=== PATIENT | female | born 1965 | race Caucasian/White ===

== ENCOUNTER → 2017-01-15 | Outpatient (CLI) | payer OTHER | LOC: LAB 07:53 | DX: R53.83 Other fatigue (principal); M62.81 Muscle weakness (generalized); Z13.6 Encounter for screening for cardiovascular disorders ==

== ENCOUNTER 2017-04-06 09:00 | Outpatient (RCR) | payer OTHER | END 2017-04-27 14:19 | disposition home or self-care (01) | LOC: PT 09:00 | DX: M62.81 Muscle weakness (generalized) (principal); R53.83 Other fatigue ==

== ENCOUNTER → 2017-04-13 | Outpatient (CLI) | payer OTHER | LOC: MAMMO 04-12 13:22 | DX: Z12.31 Encounter for screening mammogram for malignant neoplasm of breast (principal) | CPT/HCPCS: G0202 ==

== ENCOUNTER → 2017-04-28 | Outpatient (CLI) | payer OTHER | LOC: MAMMO 13:35 | DX: R92.8 Other abnormal and inconclusive findings on diagnostic imaging of breast (principal) ==

== ENCOUNTER → 2017-05-16 | Day surgery (SDC) | payer OTHER | LOC: MSO 07:50 | DX: Z12.11 Encounter for screening for malignant neoplasm of colon (principal); D12.5 Benign neoplasm of sigmoid colon; I10 Essential (primary) hypertension | CPT/HCPCS: 00810; J2405; J3010; J7120 ==

== ENCOUNTER → 2018-10-05 | Outpatient (CLI) | payer OTHER ==
[2018-10-05 13:11] LABS: HEMATOCRIT 43.5 % (37.0-47.0); HEMOGLOBIN 14.2 g/dL (12.5-16.0); RED BLOOD COUNT 4.74 M/mm3 (4.10-5.30); RED CELL DISTRIBUTION WIDTH 13.7 % (11.5-14.5); WHITE BLOOD COUNT 6.9 K/mm3 (4.8-10.8)
== END ==
LOC: LAB 12:37
PROVIDERS: Family Medicine
DX: K21.9 Gastro-esophageal reflux disease without esophagitis (principal); N91.1 Secondary amenorrhea

== ENCOUNTER → 2020-01-23 | Outpatient (CLI) | payer OTHER ==
[2020-01-23 17:41] LABS: ALBUMIN 4.5 g/dL (3.5-5.0); POTASSIUM 4.3 mmol/L (3.5-5.1)
[2020-01-23 17:42] LABS: CALCIUM 9.7 mg/dL (8.3-10.5)
[2020-01-23 17:43] LABS: TOTAL PROTEIN 7.2 g/dL (6.4-8.3)
[2020-01-23 17:45] LABS: TOTAL BILIRUBIN 0.7 mg/dL (0.2-1.2)
== END ==
LOC: LAB 17:00
PROVIDERS: Family Medicine
DX: I10 Essential (primary) hypertension (principal); K21.9 Gastro-esophageal reflux disease without esophagitis

== ENCOUNTER → 2020-10-29 | Outpatient (CLI) | payer BC ==
[2020-10-29 12:17] LABS: POTASSIUM 4.1 mmol/L (3.5-5.1)
[2020-10-29 12:18] LABS: ALBUMIN 4.3 g/dL (3.5-5.0)
[2020-10-29 12:19] LABS: CALCIUM 9.5 mg/dL (8.3-10.5)
[2020-10-29 12:20] LABS: TOTAL PROTEIN 7.4 g/dL (6.4-8.3)
[2020-10-29 12:22] LABS: TOTAL BILIRUBIN 0.6 mg/dL (0.2-1.2)
== END ==
LOC: LAB 11:56
PROVIDERS: Family Medicine
DX: I10 Essential (primary) hypertension (principal)

== ENCOUNTER → 2022-01-27 | Outpatient (CLI) | payer BC ==
[2022-01-27 16:39] LABS: URINE APPEARANCE CLEAR; URINE COLOR YELLOW; URINE PROTEIN(semi-quant) 2+ (NEGATIVE)
[2022-01-27 16:40] LABS: URINE BILIRUBIN 1+ (NEGATIVE); URINE BLOOD 250 ery/uL (NEGATIVE); URINE GLUCOSE NEGATIVE (NEGATIVE); URINE KETONE NEGATIVE (NEGATIVE); URINE LEUKOCYTE ESTERASE TRACE (NEGATIVE); URINE MUCUS PRESENT (NOT PRESENT); URINE NITRATE NEGATIVE (NEGATIVE); URINE UROBILINOGEN NORMAL (NORMAL); URINE WBC 0-1 /hpf (0-3)
== END ==
LOC: LAB 15:58
PROVIDERS: Family Medicine
DX: Z13.1 Encounter for screening for diabetes mellitus (principal); Z13.220 Encounter for screening for lipoid disorders; R35.0 Frequency of micturition; R31.9 Hematuria, unspecified; R30.9 Painful micturition, unspecified

== ENCOUNTER → 2022-02-05 | Outpatient (CLI) | payer BC ==
[2022-02-05 16:31] LABS: URINE APPEARANCE CLEAR; URINE COLOR YELLOW; URINE GLUCOSE NEGATIVE (NEGATIVE); URINE KETONE NEGATIVE (NEGATIVE); URINE PROTEIN(semi-quant) NEGATIVE (NEGATIVE)
[2022-02-05 16:32] LABS: URINE BILIRUBIN NEGATIVE (NEGATIVE); URINE BLOOD 50 ery/uL (NEGATIVE); URINE LEUKOCYTE ESTERASE NEGATIVE (NEGATIVE); URINE MUCUS PRESENT (NOT PRESENT); URINE NITRATE NEGATIVE (NEGATIVE); URINE UROBILINOGEN NORMAL (NORMAL); URINE WBC 0-1 /hpf (0-3)
[2022-02-05 17:17] LABS: ALBUMIN 4.3 g/dL (3.5-5.0); POTASSIUM 4.2 mmol/L (3.5-5.1)
[2022-02-05 17:19] LABS: TOTAL PROTEIN 7.5 g/dL (6.4-8.3)
[2022-02-05 17:21] LABS: TOTAL BILIRUBIN 0.5 mg/dL (0.2-1.2)
== END ==
LOC: LAB 16:00
PROVIDERS: Family Medicine
DX: Z13.1 Encounter for screening for diabetes mellitus (principal); Z13.220 Encounter for screening for lipoid disorders; R35.0 Frequency of micturition; R31.9 Hematuria, unspecified; R50.81 Fever presenting with conditions classified elsewhere; R30.9 Painful micturition, unspecified

== ENCOUNTER → 2023-12-26 | Outpatient (CLI) | payer BC ==
[2023-12-26 11:11] LABS: HEMATOCRIT 49.6 % (37.0-47.0); HEMOGLOBIN 16.6 g/dL (12.5-16.0); MEAN PLATELET VOLUME 8.5 fl (7.4-10.4); RED BLOOD COUNT 5.37 M/mm3 (4.10-5.30); RED CELL DISTRIBUTION WIDTH 12.2 % (11.5-14.5); WHITE BLOOD COUNT 6.5 K/mm3 (4.8-10.8)
[2023-12-26 11:17] LABS: CALCIUM 9.9 mg/dL (8.3-10.5)
[2023-12-26 11:24] LABS: MAGNESIUM 2.02 mg/dL (1.60-2.60)
[2024-01-24 15:57] LABS: CREATININE OTHER SOURCE 173.6
== END ==
LOC: LAB 10:53
PROVIDERS: Family Medicine
DX: I10 Essential (primary) hypertension (principal); E78.00 Pure hypercholesterolemia, unspecified; R00.2 Palpitations

== ENCOUNTER → 2024-07-18 | Outpatient (CLI) | payer BC | LOC: LAB 10:06 | PROVIDERS: Family Medicine | DX: R80.8 Other proteinuria (principal) ==